=== PATIENT | male | born 1970 | race Caucasian/White ===

== ENCOUNTER 2025-09-05 19:08 | Emergency (ER) | payer BC, SELFPAY ==
[2025-09-05 21:25] LABS: #Basophils 0.04 10x3/uL (0.0-0.2); #Eosinophils 0.08 10x3/uL (0.0-0.7); #Monocytes 0.44 10x3/uL (0.11-0.59); #Neutrophils 6.91 10x3/uL (1.40-6.50); %Basophils 0.4 % (0.0-1.0); %Eosinophils 0.9 % (0.0-10.0); %Lymphocytes 17.7 % (21.0-51.0); %Monocytes 4.8 % (0.0-10.0); %Neutrophils 74.8 % (42.0-75.0); Hematocrit 38.8 % (42.0-52.0); Hemoglobin 12.9 g/dL (14.0-18.0); Mean Corpuscular Hemoglobin 27.7 pg (27.0-31.0); Mean Corpuscular Volume 83.3 fL (78.0-98.0); Platelet Count 366 10x3/uL (130-400); Red Blood Cell (RBC) Count 4.66 mill/uL (4.70-6.10); White Blood Cell (WBC) Count 9.24 10x3/uL (4.8-10.8)
[2025-09-05] MEDS ORDERED: Ketorolac Tromethamine 30 MG (1 mL) VIAL ONE (21:46)
[2025-09-05 21:59] LABS: ALT (SGPT) 36 U/L (Less than 45); AST (SGOT) 24 U/L (11-34); Albumin 3.5 g/dL (3.1-4.5); Alkaline Phosphatase 118 U/L (40-110); Anion Gap 16 mmol/L (10-20); BUN (Urea Nitrogen) 11 mg/dL (8.4-25.7); Bilirubin, Total 0.9 mg/dL (0.3-1.2); Calc. Creatinine Clearance 0 mL/min (70-130); Calcium 9.2 mg/dL (7.8-10.44); Carbon Dioxide 21 mmol/L (22-29); Chloride 98 mmol/L (98-107); Globulin 4.3 g/dL (2.4-3.5); Glucose 363 mg/dL (70-105); Potassium 4.3 mmol/L (3.5-5.1); Sodium 131 mmol/L (136-145)
[2025-09-05 22:11] LABS: Bacteria/HPF None Seen HPF (None Seen); CAUTI Indications for Culture Dysuria,urgency,freq; Glucose, Urine (Dipstick) Greater than 1000 mg/dL (Negative); Leukocyte 250 Leu/uL (Negative); Protein, Urine (Dipstick) 30 mg/dL (Neg-Trace); RBC/HPF 0-3 HPF (0-3); Specific Gravity, Urine 1.044 (1.002-1.036); WBC/HPF 0-3 HPF (0-3)
[2025-09-05 22:16] LABS: Urine Culture Reflex No No
== END 2025-09-05 23:53 | disposition home or self-care (01) ==
LOC: ERS 19:08
DX: N41.0 Acute prostatitis (principal); N30.00 Acute cystitis without hematuria; E11.65 Type 2 diabetes mellitus with hyperglycemia; I10 Essential (primary) hypertension
CPT/HCPCS: 74176; 80053; 83605; 83690; 85025; 87040; 87086; 96374; J1885